=== PATIENT | male | born 2000 | race Hispanic/Latino ===

== ENCOUNTER 2024-05-26 10:47 | Emergency (ER) | payer MEDICAID ==
[~2024-05-26] VITALS: Ht 167.6 cm; Wt 90.7 kg
[~2024-05-26 10:47] MED LIST: ACYCLOVIR800 MG PO; CEFIXIME400 MG PO; DOXYCYCLINE HY100 M3 PO
[2024-05-26 10:59] VITALS: PULSE 82; RESP 15; TEMP 98.2
[2024-05-26 11:08] LABS: BASOPHILS % 0.3 % (0.0-1.0); EOSINOPHILS % 0.1 % (0.0-6.0); HEMATOCRIT 45.1 % (38.2-49.6); HEMOGLOBIN 15.8 g/dL (14.0-18.0); LYMPHOCYTES # (AUTO) 1.3 (1.0-3.2); LYMPHOCYTES % 9.5 % (18.0-39.1); MEAN CORPUSCULAR HEMOGLOBIN 32.7 pg (28-32); MEAN CORPUSCULAR VOLUME 93.4 fL (81-99); MONOCYTES # (AUTO) 1.1 (0.2-0.8); MONOCYTES % 7.8 % (4.4-11.3); NEUTROPHILS # (AUTO) 11.3 (2.1-6.9); PLATELET COUNT 132 x10e3/uL (140-360); RED BLOOD COUNT 4.83 x10e6/uL (4.3-5.7); RED CELL DISTRIBUTION WIDTH 11.9 % (11.7-14.4)
[2024-05-26] MEDS: ONDANSETRON HCL INJ 2MG/ML 2ML 2 MG/ML VIAL IV STA (11:20)
[2024-05-26] MEDS: LACTATED RINGER'S 1,000 ML INJ ONE (11:20)
[2024-05-26 11:35] LABS: ALBUMIN 4.5 g/dL (3.5-5.0); ALBUMIN/GLOBULIN RATIO 1.4 (0.8-2.0); ANION GAP 15.3 mmol/L (8-16); CALCIUM 9.6 mg/dL (8.4-10.2); CREATININE, SERUM 0.9 mg/dL (0.72-1.25); TOTAL PROTEIN 7.8 g/dL (6.5-8.1)
[2024-05-26 11:36] LABS: POTASSIUM 3.3 mmol/L (3.5-5.1)
[2024-05-26 12:36] LABS: CORONAVIRUS COVID-19 AG NEGATIVE (NEGATIVE); INFLUENZA A AG NEGATIVE (NEGATIVE); INFLUENZA B AG NEGATIVE (NEGATIVE)
[2024-05-26] MEDS ORDERED: ONDANSETRON ODT4 MG PO (12:47)
[2024-05-26] MEDS ORDERED: DICYCLOMINE HCL20 MG PO (12:47)
[2024-05-26 13:05] VITALS: BP 131/83; PULSE 80; RESP 16; TEMP 98; O2SAT 99
== END 2024-05-26 13:00 | disposition home or self-care (01) ==
LOC: ER 10:50
DX: R11.2 Nausea with vomiting, unspecified (principal); K52.9 Noninfective gastroenteritis and colitis, unspecified; R10.11 Right upper quadrant pain; F90.9 Attention-deficit hyperactivity disorder, unspecified type; Z11.52 Encounter for screening for COVID-19; F17.210 Nicotine dependence, cigarettes, uncomplicated
CPT/HCPCS: 36415; 80053; 83690; 85025; 87428; 99283; J2405; J2470; J7121

== ENCOUNTER 2024-07-29 14:57 | Emergency (ER) | payer MEDICAID ==
[~2024-07-29] VITALS: Ht 167.6 cm; Wt 90.7 kg
[~2024-07-29 14:57] MED LIST changes: +DICYCLOMINE HCL20 MG PO; +ONDANSETRON ODT4 MG PO
[2024-07-29] MEDS: ACETAMINOPHEN 325 MG TAB PO ONE (17:42)
[2024-07-29] MEDS: IBUPROFEN 600 MG TAB PO STA (17:42)
[2024-07-29] MEDS: ONDANSETRON HCL 4 MG ORAL DISINTEGRATING TAB PO ONE (17:42)
[2024-07-29 17:56] LABS: CORONAVIRUS COVID-19 AG NEGATIVE (NEGATIVE); INFLUENZA A AG NEGATIVE (NEGATIVE); INFLUENZA B AG NEGATIVE (NEGATIVE)
[2024-07-29] MEDS ORDERED: ONDANSETRON ODT4 MG PO (18:51)
[2024-07-29 19:01] VITALS: PULSE 97; RESP 18; TEMP 98.6
[2024-07-29 19:41] VITALS: PULSE 89; RESP 18; TEMP 98.6; O2SAT 100
== END 2024-07-29 19:43 | disposition home or self-care (01) ==
LOC: ER 16:41
DX: R50.9 Fever, unspecified (principal); B34.9 Viral infection, unspecified; F90.9 Attention-deficit hyperactivity disorder, unspecified type; Z11.52 Encounter for screening for COVID-19
CPT/HCPCS: 87428; 99284; Q0162